=== PATIENT | female | born 1940 | race Caucasian/White ===

== ENCOUNTER 2018-06-22 18:36 | Inpatient (IN) | payer MEDICARE ==
[~2018-06-22] VITALS: Ht 165.1 cm; Wt 71.4 kg
[2018-06-22] MEDS ORDERED: ATOR10TA PEG (18:50)
[2018-06-22] MEDS ORDERED: FLUO-120 PO (18:50)
[2018-06-22] MEDS ORDERED: METO25TA20 PO (18:50)
[2018-06-22] MEDS ORDERED: HYDR-4384 PO (18:50)
[2018-06-22] MEDS ORDERED: LEVE250T2 PO (18:50)
[2018-06-22] MEDS ORDERED: ASPI-1152 PO (18:50)
[2018-06-22 18:58] LABS: BASOPHILS # (AUTO) 0.1 /CMM (0.0-0.2); BASOPHILS % (AUTO) 0.7 % (0.0-2.0); EOSINOPHILS % (AUTO) 1.9 % (0.0-6.0); HEMATOCRIT 41 % (33-45); HEMOGLOBIN 13.7 g/dL (11.5-14.8); LYMPHOCYTES # (AUTO) 1.1 /CMM (0.8-4.8); LYMPHOCYTES % (AUTO) 15.1 % (20.0-44.0); MEAN CORPUSCULAR HGB CONC 33 g/dl (31.0-36.0); MEAN CORPUSCULAR VOLUME 99 fL (82-100); MONOCYTES # (AUTO) 0.9 /CMM (0.1-1.30); MONOCYTES % (AUTO) 12.1 % (2.0-12.0); NEUTROPHILS # (AUTO) 5.1 /CMM (1.8-8.9); NEUTROPHILS % (AUTO) 70.2 % (43.0-81.0); PLATELET COUNT (AUTO) 277 /CMM (150-450); RED BLOOD CELL COUNT(AUTO) 4.15 MIL/uL (4.0-5.2); WHITE BLOOD COUNT (AUTO) 7.2 K/uL (4.3-11.0)
[2018-06-22] MEDS ORDERED: IV NS 0.9% 1,000 ML BAG IV ONE (19:00)
[2018-06-22] MEDS ORDERED: ONDANSETRON HCL/PF 4 MG/2 ML VIAL IVP ONE (19:00)
[2018-06-22] MEDS ORDERED: ONDANSETRON HCL/PF 4 MG/2 ML VIAL ONE (19:00)
[2018-06-22 19:15] LABS: ALANINE AMINOTRANSFERASE 33 U/L (12-78); ALBUMIN 2.8 g/dL (3.4-5.0); ALKALINE PHOSPHATASE 128 U/L (46-116); ASPARTATE AMINOTRANSFERASE 24 U/L (15-37); BILIRUBIN,DIRECT 0.1 mg/dL (0.0-0.2); BILIRUBIN,TOTAL 0.2 mg/dL (0.2-1.0); CALCIUM, SERUM 8.3 mg/dL (8.5-10.1); CARBON DIOXIDE 29 mmol/L (21-32); CHLORIDE 106 mmol/L (98-107); GLUCOSE 124 mg/dL (74-106); LIPASE 70 U/L (73-393); POTASSIUM 3.8 mmol/L (3.5-5.1); SODIUM SERUM 142 mmol/L (136-145); TOTAL PROTEIN, SERUM 6.7 g/dL (6.4-8.2); UREA NITROGEN, BLOOD 20 mg/dL (7-18)
--- NOTE | 2018-06-22 19:21 | NUR ---
ADE FROM [facility], C/O DIARRHEA x 2 DAYS, 4 EPISODES YESTERDAY, -N/V, -FEVER. ALERT AND ORIENTED X 4, ON ROOM AIR, BREATHING EVENLY AND UNLABORED. CONNETCED TO THE MONITOR, AND PULSE OX. GOWN ON. URINE COLLECTED AND SENT TO LAB. KEPT COMFORTABLE, WILL CONTINUE TO MONITOR ACCORDINGLY.
[2018-06-22 19:23] LABS: APPEARANCE,URINE Slightly Cloudy (CLEAR); BILIRUBIN,URINE Negative (NEGATIVE); BLOOD, URINE Trace-intact Ery/uL (NEGATIVE); COLOR,URINE Other (YELLOW); KETONES,URINE Trace (NEGATIVE); LEUKOCYTE ESTERASE ,URINE Negative (NEGATIVE); NITRITE, URINE Positive (NEGATIVE); PROTEIN,URINE Trace mg/dl (NEGATIVE); UGLUCOSE Negative (NEGATIVE)
--- NOTE | 2018-06-22 19:25 | NUR ---
PAGED DR CARMONA
[2018-06-22 19:35] LABS: BACTERIA,URINE 3+ /HPF (None Seen); SQUAMOUS EPITHELIAL CELL,UR Few /HPF (None Seen); WBC,URINE 51-80 /HPF (0-3)
[2018-06-22] MEDS ORDERED: CEFTRIAXONE 1 G in IV D5W 50 ML IV ONE (20:00)
--- NOTE | 2018-06-22 20:00 | NUR ---
CALLED DR CARMONA WORKS MANAGER WAS PAGED.
[2018-06-22] MEDS ORDERED: CEFTRIAXONE 1 G VIAL ONE (20:08)
--- NOTE | 2018-06-22 20:57 | NUR ---
REPORT GIVEN TO PURVI PEREZ FOR CONT OF CARE.
[2018-06-22 21:18] VITALS: BP 157/77
--- NOTE | 2018-06-22 21:30 | NUR ---
MS RN NOTE: RECEIVED PATIENT FROM ER, NO ACUTE DISTRESS NOTED. BREATHING EVEN AND UNLABORED, NO SOB NOTED. IV TO LAC IN PLACE. ORIENTED PATIENT TO ROOM AND USE OF CALL LIGHT. TO CALL DR. CARMONA FOR ADMIT ORDERS. BED LOCKED AND IN LOWEST POSITION, CALL LIGHT IN REACH. WILL CONTINUE TO MONITOR.
[2018-06-22] MEDS ORDERED: ZOLP5TAB2 PO (21:49)
[2018-06-22] MEDS ORDERED: DOXYCYCLINE HYCLATE (100 MG) 100 MG TABLET PO SCH (23:30)
[2018-06-22] MEDS ORDERED: IV 1/2NS 1000 ML 1,000 ML IV PRN (23:30)
[2018-06-22] MEDS ORDERED: ZOLPIDEM TARTRATE 5 MG TABLET PO PRN (23:30)
--- NOTE | 2018-06-22 23:30 | NUR ---
MS RN NOTE: CALLED DR. CARMONA FOR ADMIT ORDERS. ORDERS NOTED, VERIFIED, AND CARRIED OUT. WILL CONTINUE TO MONITOR.
--- NOTE | 2018-06-23 06:45 | NUR ---
MS RN NOTE: PATIENT RESTING IN BED, NO ACUTE DISTRESS NOTED. BREATHING EVEN AND UNLABORED, NO SOB NOTED. IV TO LAC IN PLACE, INFUSING 1/2 NS AT 60 ML/HR. BED LOCKED AND IN LOWEST POSITION, CALL LIGHT IN REACH. WILL ENDORSE TO DAY NURSE TO CONTINUE WITH PLAN OF CARE.
[2018-06-23] MEDS: HYDROCODONE/APAP 5/325MG 1 EACH TABLET PO PRN ×3 (06:49→22:26)
[2018-06-23 07:48] LABS: BASOPHILS % (AUTO) 0.5 % (0.0-2.0); EOSINOPHILS % (AUTO) 1.6 % (0.0-6.0); HEMATOCRIT 38 % (33-45); HEMOGLOBIN 12.5 g/dL (11.5-14.8); LYMPHOCYTES # (AUTO) 1.1 /CMM (0.8-4.8); LYMPHOCYTES % (AUTO) 14.7 % (20.0-44.0); MEAN CORPUSCULAR HGB CONC 33 g/dl (31.0-36.0); MEAN CORPUSCULAR VOLUME 98 fL (82-100); MONOCYTES # (AUTO) 0.7 /CMM (0.1-1.30); MONOCYTES % (AUTO) 9.8 % (2.0-12.0); NEUTROPHILS # (AUTO) 5.4 /CMM (1.8-8.9); NEUTROPHILS % (AUTO) 73.4 % (43.0-81.0); PLATELET COUNT (AUTO) 250 /CMM (150-450); RED BLOOD CELL COUNT(AUTO) 3.87 MIL/uL (4.0-5.2); WHITE BLOOD COUNT (AUTO) 7.3 K/uL (4.3-11.0)
[2018-06-23 08:00] VITALS: BP 137/89
--- NOTE | 2018-06-23 08:00 | NUR ---
MS RN AM NOTES PATIENT RESTING IN BED ALERT AND ORIENTED X4, NO ACUTE DISTRESS NOTED. BREATHING EVEN AND UNLABORED, NO SOB NOTED. IV TO LAC IN PLACE, INFUSING 1/2 NS AT 60 ML/HR. SEEN BY WOUND SHIRT IRONER SUPERVISOR,ALCIRA LOJA WITH NEW ORDERS.BED LOCKED AND IN LOWEST POSITION, CALL LIGHT WITHIN REACH.
[2018-06-23 08:02] LABS: CALCIUM, SERUM 8.2 mg/dL (8.5-10.1); CARBON DIOXIDE 28 mmol/L (21-32); CHLORIDE 108 mmol/L (98-107); CREATININE 0.8 mg/dL (0.6-1.3); GLUCOSE 99 mg/dL (74-106); POTASSIUM 4.1 mmol/L (3.5-5.1); SODIUM SERUM 143 mmol/L (136-145); UREA NITROGEN, BLOOD 15 mg/dL (7-18)
[2018-06-23] MEDS: DOXYCYCLINE HYCLATE (100 MG) 100 MG TABLET PO SCH ×2 (08:02→22:54)
[2018-06-23] MEDS: APIXABAN 5 MG TABLET PO SCH ×2 (09:00→16:35)
--- NOTE | 2018-06-23 09:05 | NUR ---
WOUND CARE CONSULT: PT PRESENTS WITH BILATERAL KNEE ABRASIONS WITH SOME DRY SCABS TO LOWER LEGS, PRESENT ON ADMISSION. PT STATES THAT SHE FELL PRIOR TO ADMISSION. PT NOTED TO BE TOUCHING/PICKING AT HER LEGS. REDNESS WITH ODOR NOTED TO GROIN/PERINEAL AREAS, PRESENT ON ADMISSION. PT AGITATED AT TIMES. RECOMMENDATIONS MADE FOR WOUND CARE AND SKIN PROTECTION. DISCUSSED WITH NURSING STAFF. MD IN AGREEMENT WITH PLAN OF CARE. WILL SEE PRN. CURRENT ALLEN SCORE IS 19. Addendum: 06/23/18 at 0907 by ALCIRA ENNIS WNDNU Amended: Links added.
[2018-06-23] MEDS ORDERED: HYDROCODONE/APAP 5/325MG 1 EACH TABLET PO PRN (09:30)
[2018-06-23] MEDS ORDERED: ZOLPIDEM TARTRATE 5 MG TABLET PO PRN (09:30)
--- NOTE | 2018-06-23 11:00 | NUR ---
WOUND TX DONE TO PERIAREA REDNESS AND BILATERAL KNEE INCISION ABRASIONS ORDERED.
[2018-06-23] MEDS: Z GUARD REMEDY 2 OZ OINT TP SCH ×2 (11:24→22:28)
[2018-06-23] MEDS: LEVETIRACETAM (250 MG) 250 MG TABLET PO SCH ×2 (11:24→16:37)
--- NOTE | 2018-06-23 14:24 | NUR ---
PT REQUESTED FOR [employer] CAR CHAUFFEUR FOR HER LONG TOENAILS NEEDING TO BE TRIMMED.CALLED DR [facility]MONA[facility]S [facility]IN[facility] C/O KUR AND MADE AWARE AND WILL WAIT FOR DR CARMONA TO RETURN CALL.PT MADE AWARE.
[2018-06-23 16:00] VITALS: BP 126/80
[2018-06-23] MEDS: METOPROLOL TARTRATE 25 MG TABLET PO SCH (16:37)
[2018-06-23] MEDS: CLOTRIMAZOLE 1% 15 GM TUBE TP SCH (16:38)
--- NOTE | 2018-06-23 19:30 | NUR ---
MS/RN RECEIVE PATIENT AWAKE, ALERT, ORIENTED, COMFORTABLE, NO SIGNS OF DISTRESS NOTED, CALL LIGHT IN REACH. FALL PRECAUTION. WILL MONITOR.
[2018-06-23 20:29] VITALS: BP 129/72
[2018-06-23] MEDS: CEFTRIAXONE 1 G in IV D5W 50 ML IV SCH (20:40)
--- NOTE | 2018-06-23 22:00 | NUR ---
MS/RN PATIENT UNABLE TO KEEP ARM STRAIGHT, IV MACHINE CONSTANTLY BEEPING, REFUSED IV INSERTION TO A DIFFERENT SITE. PATIENT REFUSED IV.
[2018-06-23] MEDS: ATORVASTATIN 10 MG TABLET PO SCH (22:25)
--- NOTE | 2018-06-24 06:21 | NUR ---
MS/RN PATIENT STILL SLEEPING AT THIS THIS TIME, APPEAR COMFORTABLE, NO SIGNS OF DISTRESS NOTED, CALL LIGHT IN REACH. ALL NEEDS ATTENDED AT THIS TIME, WILL CONTINUE TO MONITOR.
[2018-06-24 08:00] VITALS: BP 123/86
--- NOTE | 2018-06-24 08:00 | NUR ---
MS RN AM NOTES PATIENT RESTING IN BED ALERT AND ORIENTED X4, NO ACUTE DISTRESS NOTED. BREATHING EVEN AND UNLABORED, NO SOB NOTED.C/O EMA KNEES SURGICAL SITES PAIN-NORCO 5/325 1 TAB PO GIVEN. IV TO LAC IN PLACE, INFUSING 1/2 NS AT 60 ML/HR. SEEN BY DR CARMONA WITH ORDERS TO BE DISCHARGE TO [facility] 3 DAYS.BED LOCKED AND IN LOWEST POSITION, CALL LIGHT WITHIN REACH.
[2018-06-24] MEDS: LEVETIRACETAM (250 MG) 250 MG TABLET PO SCH ×2 (08:28→17:34)
[2018-06-24] MEDS: APIXABAN 5 MG TABLET PO SCH ×2 (08:28→17:33)
[2018-06-24] MEDS: DOXYCYCLINE HYCLATE (100 MG) 100 MG TABLET PO SCH ×2 (08:28→21:00)
[2018-06-24] MEDS: METOPROLOL TARTRATE 25 MG TABLET PO SCH ×2 (08:36→17:35)
[2018-06-24] MEDS: Z GUARD REMEDY 2 OZ OINT TP SCH ×2 (08:37→21:00)
[2018-06-24] MEDS: HYDROCODONE/APAP 5/325MG 1 EACH TABLET PO PRN ×2 (08:38→17:32)
[2018-06-24] MEDS: FLUOXETINE HCL 20 MG CAPSULE PO SCH (08:39)
[2018-06-24] MEDS: CLOTRIMAZOLE 1% 15 GM TUBE TP SCH ×3 (09:20→17:38)
--- NOTE | 2018-06-24 10:41 | NUR ---
PT REMOVED HER RT LOWER EXTREMITY WOUND DRESSING AND HER WOUND STARTED BLEEDING.INSTRUCTED NOT TO PULL OUT THE DRESSING.REINFORCED DRESSING ON THE WOUND TO STOP THE BLEEDING AND DID THE WOUND TX TO EMA KNEES WOUND.
--- NOTE | 2018-06-24 15:45 | NUR ---
HOSPITAL CLERK,DR CERVANTES TRIMMED PT'S LONG TOENAILS WITH ORDERS TO APPLY LOTRIMIN.
[2018-06-24 16:00] VITALS: BP 138/86
[2018-06-24] MEDS: LACTOBACILLUS RHAMNOSUS GG 1 EACH CAP.SPRINK PO SCH (17:32)
--- NOTE | 2018-06-24 17:58 | NUR ---
PT ATE 100% DINNER AND APPLIED LOTRIMIN TO BILATERAL TOENAILS. WOUND TX TO EMA SURGICAL KNEES DONE ORDERED.NO BLEEDING NOTED.
--- NOTE | 2018-06-24 18:08 | NUR ---
PT HAS BEEN REFUSING TO HAVE HER IVF INFUSION ON WHILE EATING AND SLEEPING,BENDING HER ARM AND THE ALARM GOING ON FREQUENTLY OF HER LT AC.WILL RESUME IVF INFUSION AFTER DINNER.
--- NOTE | 2018-06-24 19:30 | NUR ---
RN NOTES RECEIVED PT. AWAKE O BED, A/OX3, DRESSING ON THE BILATERAL KNEE DRY AND INTACT, DENIES PAIN, NO SOB, CALL LIGHT WITHIN REACH, [id number], CONTINUE TO MONITOR
[2018-06-24] MEDS: CEFTRIAXONE 1 G in IV D5W 50 ML IV SCH (20:04)
[2018-06-24 20:46] VITALS: BP 124/71
[2018-06-24] MEDS: ATORVASTATIN 10 MG TABLET PO SCH (21:00)
--- NOTE | 2018-06-24 21:00 | NUR ---
RN NOTES PT. ASKED HER IV FLUID TO BE OFF TONIGHT AND WILL RESUMED IN THE MORNING
--- NOTE | 2018-06-25 02:00 | NUR ---
RN NOTES COMPLAINED BILATERAL KNEE PAIN- NORCO 5/325MG PO GIVEN ORDERED, V/S STABLE
[2018-06-25] MEDS: HYDROCODONE/APAP 5/325MG 1 EACH TABLET PO PRN ×2 (02:47→13:14)
--- NOTE | 2018-06-25 06:27 | NUR ---
RN NOTES RN NOTES SLEEPING BUT AROUSABLE, NO PAIN NOTED, NO SOB, MORNING CARE RENDERED, CALL LIGHT WITHIN REACH, SIDERAILSUPX2, PT, NEEDS ATTENDED
--- NOTE | 2018-06-25 07:26 | NUR ---
RN OPENING NOTES PT WAS RECEIVED IN BED AT LOWEST AND LOCKED POSITION WITH SIDE RAILS UP X2, A/O X4, BREATHING EVEN AND UNLABORED ON RA, NO S/S OF PAIN OR DISTRESS CURRENTLY NOTED, IV IS PATENT AND INTACT, SAFETY PRECAUTIONS IN PLACE, CALL LIGHT WITHIN REACH, WILL MONITOR ACCORDINGLY
[2018-06-25 08:00] VITALS: BP 121/68
[2018-06-25] MEDS: LACTOBACILLUS RHAMNOSUS GG 1 EACH CAP.SPRINK PO SCH (08:21)
[2018-06-25] MEDS: LEVETIRACETAM (250 MG) 250 MG TABLET PO SCH (08:22)
[2018-06-25] MEDS: DOXYCYCLINE HYCLATE (100 MG) 100 MG TABLET PO SCH (08:22)
[2018-06-25] MEDS: FLUOXETINE HCL 20 MG CAPSULE PO SCH (08:22)
[2018-06-25 08:23] VITALS: BP 121/68
[2018-06-25] MEDS: METOPROLOL TARTRATE 25 MG TABLET PO SCH (08:23)
[2018-06-25] MEDS: CLOTRIMAZOLE 1% 15 GM TUBE TP SCH ×2 (08:24)
[2018-06-25] MEDS: APIXABAN 5 MG TABLET PO SCH (08:25)
[2018-06-25] MEDS: Z GUARD REMEDY 2 OZ OINT TP SCH (09:00)
--- NOTE | 2018-06-25 11:10 | NUR ---
RN NOTES REPORT GIVEN TO GUTIERREZ AT [facility] AT THIS TIME
--- NOTE | 2018-06-25 12:58 | NUR ---
RN NOTE REPORT GIVEN TO NAT LATH[facility]
--- NOTE | 2018-06-25 13:10 | NUR ---
DISCHARGE NOTE PT WAS D/C IN MEDICALLY STABLE CONDITION AT THIS TIME TO [facility] WITH THE EMT CREW, REPORT WAS GIVEN TO NAT AT THE [facility]. IV AND ID BAND WERE REMOVED. ALL D/C PAPERWORK AND BELONGINGS WERE DISCUSSED AND SIGNED. ALL BELONGINGS WERE HANDED TO THE PATIENT. SKIN WOUNDS WERE PHOTOGRAPHED AND DOCUMENTED. ALL NEEDS WERE ATTENDED TO DURING HER STAY. ETA 15 MIN
== END 2018-06-25 13:26 | DRG 872 ==
LOC: ER 18:43 → MED 20:16
PROVIDERS: ADMIT Internal Medicine; ATTEND Internal Medicine
DX: A41.9 Sepsis, unspecified organism (principal); N39.0 Urinary tract infection, site not specified; N17.9 Acute kidney failure, unspecified; E86.0 Dehydration; R29.6 Repeated falls; I48.0 Paroxysmal atrial fibrillation; M19.90 Unspecified osteoarthritis, unspecified site; R19.7 Diarrhea, unspecified; R53.1 Weakness; R26.9 Unspecified abnormalities of gait and mobility; B35.1 Tinea unguium; B35.3 Tinea pedis; G40.909 Epilepsy, unspecified, not intractable, without status epilepticus; M79.672 Pain in left foot; M79.671 Pain in right foot; I25.10 Atherosclerotic heart disease of native coronary artery without angina pectoris; I10 Essential (primary) hypertension; Z96.653 Presence of artificial knee joint, bilateral; Z79.01 Long term (current) use of anticoagulants
CPT/HCPCS: 36415; 73564-TC; 80048-TC; 80076-TC; 81000-TC; 83690-TC; 84484-TC; 85025-TC; 85730-TC; 87081-TC; 87086-TC; 87186-TC; 97110-TC; 97112-TC; 97530-TC; A6403; G0378; J0696; J2405; J3490; J7030; J7060